=== PATIENT | female | born 1965 | race Caucasian/White ===

== ENCOUNTER 2016-11-21 12:50 | Emergency (ER) | payer OTHER ==
[~2016-11-21] VITALS: Ht 157.5 cm; Wt 47.0 kg
[~2016-11-21 12:50] MED LIST: AMLO-511 PO; HYDR25TA PO
[2016-11-21 12:54] VITALS: BP 138/86
== END 2016-11-21 14:46 | disposition left against medical advice (07) ==
LOC: EMS 12:53
DX: J34.0 Abscess, furuncle and carbuncle of nose (principal); I10 Essential (primary) hypertension; Z53.21 Procedure and treatment not carried out due to patient leaving prior to being seen by health care provider

== ENCOUNTER 2017-10-13 18:56 | Emergency (ER) | payer OTHER ==
[~2017-10-13] VITALS: Ht 152.4 cm; Wt 51.8 kg
[2017-10-13 19:11] VITALS: BP 134/89
== END 2017-10-13 21:03 | disposition home or self-care (01) ==
LOC: EMS 18:56
DX: H66.93 Otitis media, unspecified, bilateral (principal); I10 Essential (primary) hypertension; Z88.8 Allergy status to other drugs, medicaments and biological substances
CPT/HCPCS: 99283

== ENCOUNTER 2024-04-26 21:04 | Emergency (ER) | payer OTHER ==
[~2024-04-26] VITALS: Ht 152.4 cm; Wt 45.5 kg
[~2024-04-26 21:04] MED LIST changes: +AMLO-257 PO; -AMLO-511 PO; -HYDR25TA PO; +HYDR25TA2 PO
[2024-04-27] MEDS: BACITRACIN 0.9 GM PACKET OINTMENT TP ONE (01:00)
[2024-04-27] MEDS: PERTUSS(ACELL),DIPH,TET/PF 0.5 ML SYRINGE [ADULT] IM. ONE (01:00)
[2024-04-27 01:27] VITALS: BP 158/79; PULSE 76; RESP 20; TEMP 98.3; O2SAT 98
== END 2024-04-27 01:33 | disposition home or self-care (01) ==
LOC: EMS 21:04
DX: S60.411A Abrasion of left index finger, initial encounter (principal); I10 Essential (primary) hypertension; Z79.899 Other long term (current) drug therapy; W23.1XXA Caught, crushed, jammed, or pinched between stationary objects, initial encounter; Y93.89 Activity, other specified; Y92.89 Other specified places as the place of occurrence of the external cause; Y99.8 Other external cause status
CPT/HCPCS: 90471; 90715; 99283